=== PATIENT | male | born 1965 | race Caucasian/White ===

== ENCOUNTER 2017-04-20 00:58 | Emergency (ER) | payer BC ==
[2017-04-20 01:07] VITALS: BP 154/87
[2017-04-20] MEDS ORDERED: KETOROLAC TROMETHAMINE 60 MG/2 ML VIAL IM ONE ×2 (01:13→01:17)
[2017-04-20] MEDS ORDERED: CYCLOBENZAPRINE HCL 10 MG TABLET PO ONE (01:51)
[2017-04-20] MEDS ORDERED: traMADol HCL 50 MG TABLET PO ONE (01:51)
--- NOTE | 2017-04-20 01:59 | ERNOTE ---
Lower Extremity HPI - Narrative Date of Service: 04/20/17 - General Lower Extremities Pain: hip: right, leg: right Time Seen by Provider: 04/20/17 01:09 Source: patient, family Exam Limitations: no limitations - Immun/Allergies/Home Medications Immunizations: IMMUNIZATION HX Immunizations Up to Date No Allergies/Adverse Reactions: Allergies Allergy/AdvReac Type Severity Reaction Status Date / Time No Known Allergies Allergy Unverified 04/20/17 01:07 Home Medications: HOME MEDICATIONS Cyclobenzaprine HCl 10 mg PO TID #30 tablet 04/20/17 [Last Taken Unknown] Ibuprofen [Motrin] 800 mg PO PRN PRN 04/20/17 [Last Taken 04/20/17 00:30] traMADol HCL [Ultram] 50 mg PO QID #40 tablet 04/20/17 [Last Taken Unknown] - History of Present Illness Narrative: patient slipped on ice but did not fall to ground Occurred: yesterday Location of Incident: home Method of Injury: Reports: twisted Reason for Fall: Reports: lost balance, slipped Loss of Consciousness: Reports: no loss of consciousness Modifying Factors - (Improves): Reports: rest Modifying Factors - (Worsens): Reports: movement Associated Symptoms: Reports: none Other Injuries: Reports: none Subsequent Symptoms: Reports: numbness Review of Systems - Narrative Narrative: unremarkable - Review of Systems Constitutional: Present: See HPI EYE: Present: see HPI ENT: Present: See HPI Respiratory: Present: See HPI Cardiology: Present: See HPI Gastrointestinal/Abdominal: Present: See HPI Genitourinary: Present: See HPI Musculoskeletal: Present: back pain, other - pain radiates down back of right leg Skin: Present: no symptoms reported Neurological: Present: no symptoms reported Endocrine: Present: no symptoms reported Hematologic/Lymphatic: Present: no symptoms reported - Narrative Narrative: unremarkable - Patient's Past Medical History Patient History - Medical: No pertinent hx Patient History - Cardiac/Respiratory: No pertinent hx Patient History - Cancer: No Hx of Cancer Patient History - Surgical Procedures: No surgical history Patient History - Other: None - Family History Family History:: no untoward family reactions to anesthesia, no familial bleeding tendencies, no family history of clotting disorders, no family history of premature - Social History Living Situations: home Abuse History: No History of abuse Psych History: No pertinent hx Does anyone smoke in the home?: No Smoking Status: Never smoker Have you smoked in the past 12 months: No Do you dip or chew tobacco: No Patient requests Smoking Cessation Consult: No Initiate information on Smoking Cessation: No Alcohol Use: heavy Drug Use: none - Immunizations Immunizations Up to Date: No Hx Pneumococcal Vaccination: No History of Influenza Vaccine: No Physical Exam - Physical Exam General Appearance: Present: moderate distress Head Exam: Present: normal inspection, no evidence of injury Eye Exam: Normal inspection: bilateral, PERRL: bilateral, EOMI: bilateral Ears, Nose, Throat: Present: normal ENT inspection Neck: Present: normal inspection, nontender Respiratory: Present: no respiratory distress, normal breath sounds, no accessory muscle use, chest nontender, lungs clear Cardiovascular/Chest: Present: regular rate, rhythm, no murmur, normal peripheral pulses Peripheral Pulses: N=norm/S=strong/W=weak/B=bound/A=absent: Carotid (R): Normal , Carotid (L): Normal, Radial (R): Normal, Radial (L): Normal, Femoral (R): Normal, Femoral (L): Normal, Dorsalis-pedis (R): Normal, Dorsalis-pedis (L): Normal Gastrointestinal/Abdominal: Present: normal bowel sounds, nontender, nondistended, soft, no organomegaly Back Exam: Present: vertebral tenderness, decreased range of motion, muscle spasm Extremity Exam: Present: normal inspection, non-tender, normal range of motion, no edema Neurological Exam: Present: alert, oriented, normal mood/affect, no motor/ sensory deficits DTR: N=norm/NB=norm/brisk/A=abs/DD=dull/dimin/HC=hyperactive: Bicep (R): Normal , Bicep (L): Normal, Tricep (R): Normal, Tricep (L): Normal, Knee (R): Normal, Knee (L): Normal, Ankle (R): Normal, Ankle (L): Normal Skin Exam: Present: normal color, warm/dry Lymphatic Exam: Present: no adenopathy ED Progress - Date and Time Seen: Date and Time: 04/20/17 01:55 improved - Vital Signs Patient's Vital Signs:: I have reviewed the patient's vital signs. Vital Signs: Vital Signs 04/20/17 01:03 Temperature 36.6 C Pulse Rate 88 Respiratory 12 Rate Blood Pressure 154/87 O2 Sat by Pulse 98 Oximetry - X-Ray X-Ray #1 X-Ray: lumbosacral - no acute process - Progress/Reassessment Chief Complaint: Lower Extremity Pain/ Injury Progress:: Improved - Transfer of Care Expected Disposition: Discharge Plan - Plan Plan: to be discharged Departure Clinical Impression: Sciatica, right side - Departure Disposition: Home Follow Up Needed Condition: Fair Instructions: Sciatica, [id number] Prescriptions: Cyclobenzaprine HCl 10 mg PO TID #30 tablet traMADol HCL [Ultram] 50 mg PO QID #40 tablet
[2017-04-20] MEDS ORDERED: traMADol HCL 50 MG TABLET ONE (02:02)
[2017-04-20] MEDS ORDERED: CYCLOBENZAPRINE HCL 10 MG TABLET ONE (02:02)
== END 2017-04-20 02:08 | disposition home or self-care (01) ==
LOC: ER 00:58
DX: M54.31 Sciatica, right side; W18.40XA Slipping, tripping and stumbling without falling, unspecified, initial encounter